=== PATIENT | female | born 1995 | race Caucasian/White ===

== ENCOUNTER → 2019-12-08 09:10 | Outpatient (CLI) | payer BC | END | disposition home or self-care (01) | LOC: D.RAD 09:10 | PROVIDERS: ATTEND Nurse Practitioner Acute Care | DX: R13.10 Dysphagia, unspecified (principal); K21.0 Gastro-esophageal reflux disease with esophagitis; E03.9 Hypothyroidism, unspecified ==

== ENCOUNTER → 2020-01-10 08:42 | Outpatient (CLI) | payer BC | END | disposition home or self-care (01) | LOC: D.NM 08:42 | PROVIDERS: ATTEND Nurse Practitioner Acute Care | DX: K21.0 Gastro-esophageal reflux disease with esophagitis (principal); R13.10 Dysphagia, unspecified; E03.9 Hypothyroidism, unspecified; K22.0 Achalasia of cardia; K44.9 Diaphragmatic hernia without obstruction or gangrene; K20.9 Esophagitis, unspecified ==

== ENCOUNTER → 2020-01-12 07:05 | Outpatient (CLI) | payer BC ==
--- NOTE | 2020-01-12 09:39 | NUR ---
PT. WITH HISTORY OF BROKEN NOSE, WITH OBVIOUS NOTED DEFORMITY. ATTEMPTS TO PASS MANOMETRY TUBE TO RIGHT NARE, NOTED RESISTANCE WITH DIFFICULT PASSAGE. TUBE REMOVED WITH NOTED BLEEDING FROM NARE. WASH CLOTHS PROVIDED AND PRESSURE APPLIED. PHONE CALL MADE TO WINIFRED IN OFFICE ABOUT FAILED ATTEMPTED PLACEMENT OF MANOMETRY TUBE. PATIENT CONTINUES WITH SLIGHT NOSE BLEED AFTER 20 MINUTES OF PRESSURE & CLOTH APPLIED. AFRIN NASAL SPRAY USED FOR BLEEDING CONTROL. NASAL BLEEDING SUBSIDED AFTER NASAL SPRAY USED. PT. LEFT DEPARTMENT.
== END | disposition home or self-care (01) ==
LOC: D.OPS 07:05
PROVIDERS: ATTEND Surgery
DX: K22.0 Achalasia of cardia (principal)